=== PATIENT | female | born 1940 | race Caucasian/White ===

== ENCOUNTER 2016-07-12 13:27 | Inpatient (IN) ==
[2016-07-12] MEDS ORDERED: Ipratropium/Albuterol Neb 3 ML IH ONE (13:49)
--- NOTE | 2016-07-12 13:50 | Emergency Department Note ---
Disposition Clinical Impression: Atrial fibrillation with RVR COPD (chronic obstructive pulmonary disease) Qualifiers: COPD type: unspecified COPD Qualified Code(s): J44.9 - Chronic obstructive pulmonary disease, unspecified Disposition: Admitted As Inpatient Condition: Fair Referrals: Luz Hicks MD [Primary Care Provider] - Forms: ED Satisfaction Letter Time of Disposition: 14:38 SOB HPI - General Chief Complaint: ED Weakness Stated Complaint: weakness Time Seen by Provider: 07/12/16 13:33 Source: patient, EMS Limitations: no limitations Nursing Notes Reviewed: Yes Vital Signs Reviewed: Yes - History of Present Illness 75-year-old comes in complaining of increasing shortness of breath for the last couple of days. Patient states that she's had shortness of breath Quite some time. Had a cough. She denies chest pain. Previous echo done in 2013 shows an EF of 60%. He denies history of CHF Pt Subjective Complaint: shortness of breath Onset (ago): Just BUNDLE TIER (Has worsened) Severity: moderate Consistency/Duration: constant Improves with: nothing Worsens with: nothing Known history of: COPD Associated symptoms: Reports: denies other symptoms Treatment prior to arrival: none Cough present: Yes - Related Data Home Medications Medication Instructions Recorded Confirmed Cholecalciferol (Vitamin D3) 2,000 unit PO DAILY 02/14/15 07/12/16 [Vitamin D3] Docusate [Colace] 300 mg PO HS 02/14/15 07/12/16 Ferrous Sulfate 325 mg PO DAILY 02/14/15 07/12/16 Losartan/Hydrochlorothiazide 1 each PO BID 02/14/15 07/12/16 [Hyzaar 50-12.5 Tablet] Lutein 10 mg PO DAILY 02/14/15 07/12/16 Multivitamin/Iron/Folic Acid 1 each PO DAILY 02/14/15 07/12/16 [Centrum Complete Multivit Tab] Nebivolol [Bystolic] 10 mg PO DAILY 02/14/15 07/12/16 Rivaroxaban [Xarelto] 20 mg PO HS 02/14/15 07/12/16 Sennosides [Senna] 8.6 mg PO DAILY 02/14/15 07/12/16 Simvastatin [Zocor] 20 mg PO HS 02/14/15 07/12/16 Albuterol Sulfate [Albuterol 0 puff IH Q4HR 07/12/16 07/12/16 Inhaler] Oxybutynin [Ditropan] 5 mg PO BID 07/12/16 07/12/16 Oxygen 2 l .ROUTE AD 07/12/16 07/12/16 Previous Rx's Medication Instructions Recorded Oxycodone HCl/Acetaminophen 1 each PO Q4H PRN #15 tablet 02/14/15 [Percocet 5-325 mg Tablet] Allergies Allergy/AdvReac Type Severity Reaction Status Date / Time ciprofloxacin [From Cipro] Allergy UNKNOWN Verified 02/14/15 11:03 tramadol [From Ultram] AdvReac UNKNOWN Verified 02/14/15 11:03 trospium AdvReac Diarrhea Verified 02/14/15 11:03 All systems ED: reviewed and negative except as stated. Constitutional: Denies: fever, chills, weakness, weight change Eyes: Denies: eye pain, eye discharge, vision change ENT ED: Denies: ear pain, throat pain, dental pain, hearing loss, epistaxis, congestion, dysphagia Cardiovascular: Reports: dyspnea on exertion. Denies: chest pain, palpitations , edema, syncope Respiratory: Reports: dyspnea. Denies: cough, wheezes, hemoptysis, stridor Gastrointestinal: Denies: abdominal pain, nausea, vomiting, diarrhea, constipation, hematemesis, melena, hematochezia Genitourinary: Denies: dysuria, frequency, hematuria, discharge Musculoskeletal: Denies: back pain, neck pain, arthralgia, myalgia Integumentary: Denies: rash, abrasion, lesions Neurological: Denies: headache, weakness, numbness, paresthesias, confusion, abnormal gait, vertigo Psychiatric: Denies: anxiety, depression, suicidal thoughts, homicidal thoughts , auditory hallucinations, visual hallucinations Endocrine: Denies: fatigue Hematological/Lymphatic: Denies: easy bleeding, easy bruising Allergic/Immunologic: Denies: facial swelling, urticaria Past Medical History - Past Medical History Medical history: Reports: atrial fibrillation, COPD, hypertension, kidney stones Surgical history: Reports: cholecystectomy Psychiatric history: Reports: no psych history - Social History Smoking Status: Never smoker Smokeless Tobacco Status: No Alcohol use: Reports: none Drug use: Reports: none Physical Exam - General Limitations: no limitations General appearance: alert - Head Head exam: atraumatic, normocephalic, normal inspection - Eye Eye exam: Present: normal appearance, PERRL, EOMI - ENT ENT exam: normal exam, normal oropharynx, mucous membranes moist - Neck Neck exam: Present: normal inspection, full ROM, trachea midline - Chest Chest inspection: Present: normal inspection, symmetric chest wall rise - Respiratory Respiratory exam: Present: wheezes (Occasional) - Cardiovascular Cardiovascular exam: Present: tachycardia, irregular rhythm - Abdominal Exam Abdominal exam: Present: soft, Non-Tender. Absent: tenderness, distention, guarding, rebound, rigidity - Extremities Exam Extremities exam: Present: normal inspection, full ROM. Absent: tenderness, pedal edema - Expanded Lower Extremity Exam Neurovascular/Tendon exam: Absent: motor deficit, sensory deficit, tendon deficit Gait: observed and normal - Back Exam Back exam: Present: normal inspection, full ROM. Absent: tenderness - Neurological Exam Neurological exam: Present: alert - Psychiatric Psychiatric exam: Present: normal affect, normal mood - Skin Skin exam: Present: warm, dry, intact, normal color Course - Reevaluation(s) Reevaluation #1: 75-year-old comes in with shortness of breath was found to be in A. fib with RVR. Patient and family states she has been in A. fib in the past although her last EKG here shows she was in sinus. Ears that she likely has paroxysmal atrial fibrillation. We will admit her to the hospital she is on a Cardizem drip. Time: 15:54 - Consultations Consultation #1: Discussed with , admit. Time: 15:55 Vital Signs Temperature 98.4 F 07/12/16 13:30 Pulse Rate 118 07/12/16 13:30 Respiratory Rate 24 07/12/16 13:30 Blood Pressure 169/109 07/12/16 13:30 O2 Sat by Pulse Oximetry 93 07/12/16 13:30 Temperature 98.4 F 07/12/16 13:30 Pulse Rate 124 07/12/16 15:04 Respiratory Rate 18 07/12/16 15:04 Blood Pressure 121/79 07/12/16 15:04 O2 Sat by Pulse Oximetry 97 07/12/16 15:04 Oxygen Delivery Oxygen Delivery Nasal Cannula Shortness of Breath/Dyspnea - Lab Data Lab results reviewed: Yes I reviewed the patient's lab results. Result diagrams: 07/12/16 13:54 07/12/16 13:54 Lab Results 07/12/16 07/12/16 07/12/16 Range/Units 13:54 13:54 13:54 WBC 12.0 H (4.3-11.1) K/mcL RBC 4.15 (3.82-4.97) M/mcL Hgb 12.2 (11.5-15.4) g/dL Hct 41.4 (35.3-44.9) % MCV 99.8 (83.0-100.0) fL MCH 29.4 (28.0-33.3) pg MCHC 29.5 L (31.6-35.5) g/dL RDW 13.5 (11.5-14.5) % Plt Count 165 (140-400) K/mcL MPV 10.1 (9.4-12.4) fL Immature Gran % 0.3 (0-4) % Seg Neutrophils % 78.7 % Lymphocytes % 14.0 % Monocytes % 6.2 % Eosinophils % 0.5 % Basophils % 0.3 % Neutrophils # 9.4 H (1.6-8.9) K/mcL Lymphocytes # 1.7 (0.6-4.6) K/mcL Monocytes # 0.7 (0.0-1.3) K/mcL Eosinophils # 0.1 (0.0-0.6) K/mcL Basophils # 0.0 (0.0-0.2) K/mcL PT (9.4-12.1) Seconds INR APTT (26.0-36.0) Seconds ABG pH (7.32-7.45) pH Units ABG pCO2 (35-45) mmHg ABG pO2 (85-104) mmHg ABG HCO3 (21-27) mEQ/L ABG Total CO2 (20-26) mEq/L ABG O2 Saturation (95-98) % ABG Base Excess (-2.0 to 3.0) mEq/L Blood Gas Modality Inspired O2 % Sodium 149 H (136-145) mEq/L Potassium 3.6 (3.5-4.5) mEq/L Chloride 95 L (98-109) mEq/L Carbon Dioxide 49 H* (19-29) mEq/L BUN 33 H (7-20) mg/dL Creatinine 1.15 H (0.57-1.11) mg/dL Est GFR ( Amer) 56 L (> 60) Est GFR (Non-Af Amer) 46 L (> 60) BUN/Creatinine Ratio 29 H (6-26) Glucose 130 H (70-99) mg/dL Calculated Osmolality 317 H (280-300) Lactic Acid 1.6 (0.5-2.2) mmol/L Calcium 10.4 (8.6-10.8) mg/dL Troponin I (0-0.03) ng/mL B-Natriuretic Peptide (0-100) pg/mL 07/12/16 07/12/16 07/12/16 Range/Units 13:54 13:54 13:54 WBC (4.3-11.1) K/mcL RBC (3.82-4.97) M/mcL Hgb (11.5-15.4) g/dL Hct (35.3-44.9) % MCV (83.0-100.0) fL MCH (28.0-33.3) pg MCHC (31.6-35.5) g/dL RDW (11.5-14.5) % Plt Count (140-400) K/mcL MPV (9.4-12.4) fL Immature Gran % (0-4) % Seg Neutrophils % % Lymphocytes % % Monocytes % % Eosinophils % % Basophils % % Neutrophils # (1.6-8.9) K/mcL Lymphocytes # (0.6-4.6) K/mcL Monocytes # (0.0-1.3) K/mcL Eosinophils # (0.0-0.6) K/mcL Basophils # (0.0-0.2) K/mcL PT 12.7 H (9.4-12.1) Seconds INR 1.2 APTT 33.0 (26.0-36.0) Seconds ABG pH (7.32-7.45) pH Units ABG pCO2 (35-45) mmHg ABG pO2 (85-104) mmHg ABG HCO3 (21-27) mEQ/L ABG Total CO2 (20-26) mEq/L ABG O2 Saturation (95-98) % ABG Base Excess (-2.0 to 3.0) mEq/L Blood Gas Modality Inspired O2 % Sodium (136-145) mEq/L Potassium (3.5-4.5) mEq/L Chloride (98-109) mEq/L Carbon Dioxide (19-29) mEq/L BUN (7-20) mg/dL Creatinine (0.57-1.11) mg/dL Est GFR ( Amer) (> 60) Est GFR (Non-Af Amer) (> 60) BUN/Creatinine Ratio (6-26) Glucose (70-99) mg/dL Calculated Osmolality (280-300) Lactic Acid (0.5-2.2) mmol/L Calcium (8.6-10.8) mg/dL Troponin I 0.02 (0-0.03) ng/mL B-Natriuretic Peptide 95 (0-100) pg/mL 07/12/16 Range/Units 14:35 WBC (4.3-11.1) K/mcL RBC (3.82-4.97) M/mcL Hgb (11.5-15.4) g/dL Hct (35.3-44.9) % MCV (83.0-100.0) fL MCH (28.0-33.3) pg MCHC (31.6-35.5) g/dL RDW (11.5-14.5) % Plt Count (140-400) K/mcL MPV (9.4-12.4) fL Immature Gran % (0-4) % Seg Neutrophils % % Lymphocytes % % Monocytes % % Eosinophils % % Basophils % % Neutrophils # (1.6-8.9) K/mcL Lymphocytes # (0.6-4.6) K/mcL Monocytes # (0.0-1.3) K/mcL Eosinophils # (0.0-0.6) K/mcL Basophils # (0.0-0.2) K/mcL PT (9.4-12.1) Seconds INR APTT (26.0-36.0) Seconds ABG pH 7.46 H (7.32-7.45) pH Units ABG pCO2 79 H* (35-45) mmHg ABG pO2 90 (85-104) mmHg ABG HCO3 56.2 H (21-27) mEQ/L ABG Total CO2 58.6 H (20-26) mEq/L ABG O2 Saturation 97 (95-98) % ABG Base Excess 27.0 H (-2.0 to 3.0) mEq/L Blood Gas Modality [place] Inspired O2 28 % Sodium (136-145) mEq/L Potassium (3.5-4.5) mEq/L Chloride (98-109) mEq/L Carbon Dioxide (19-29) mEq/L BUN (7-20) mg/dL Creatinine (0.57-1.11) mg/dL Est GFR ( Amer) (> 60) Est GFR (Non-Af Amer) (> 60) BUN/Creatinine Ratio (6-26) Glucose (70-99) mg/dL Calculated Osmolality (280-300) Lactic Acid (0.5-2.2) mmol/L Calcium (8.6-10.8) mg/dL Troponin I (0-0.03) ng/mL B-Natriuretic Peptide (0-100) pg/mL - Radiology Data Radiology results reviewed: Yes I reviewed the patient's radiology results. Chest X-Ray 07/12/16 13:45 IMPRESSION: 1. No active pulmonary disease. 2. Stable cardiomegaly without overt failure. D/ / Dionte Dominguez MD / Dionte Dominguez MD Interpreting Provider: Dionte Dominguez MD - EKG Data EKG attestation: Yes I reviewed and interpreted this EKG. Rate: Reports: tachycardia Rhythm: Reports: A.Fib When compared to previous EKG there are: changes noted (Previous EKG done 2014 shows a sinus rhythm) Interpretation: Reports: other (New-onset A. fib RVR)
[2016-07-12 14:04] LABS: Basophils % 0.3 %; Eosinophils # 0.1 K/mcL (0.0-0.6); Eosinophils % 0.5 %; Hematocrit 41.4 % (35.3-44.9); Hemoglobin 12.2 g/dL (11.5-15.4); Immature Granulocytes % 0.3 % (0-4); Lymphocytes # 1.7 K/mcL (0.6-4.6); Mean Corpuscular HGB Conc 29.5 g/dL (31.6-35.5); Mean Corpuscular Hemoglobin 29.4 pg (28.0-33.3); Mean Corpuscular Volume 99.8 fL (83.0-100.0); Mean Platelet Volume 10.1 fL (9.4-12.4); Monocytes # 0.7 K/mcL (0.0-1.3); Monocytes % 6.2 %; Neutrophils # 9.4 K/mcL (1.6-8.9); Platelet Count 165 K/mcL (140-400); Red Blood Count 4.15 M/mcL (3.82-4.97); Red Cell Distribution Width 13.5 % (11.5-14.5); Segmented Neutrophils % 78.7 %
[2016-07-12 14:10] LABS: INR 1.2; Prothrombin Time 12.7 Seconds (9.4-12.1)
[2016-07-12 14:17] LABS: Calcium 10.4 mg/dL (8.6-10.8); Potassium 3.6 mEq/L (3.5-4.5)
[2016-07-12 14:58] LABS: ABG HCO3 56.2 mEQ/L (21-27); ABG Oxygen Saturation 97 % (95-98); ABG PH 7.46 pH Units (7.32-7.45); ABG PO2 90 mmHg (85-104); ABG TCO2 58.6 mEq/L (20-26)
[2016-07-12 14:59] LABS: ABG PCO2 79 mmHg (35-45); Blood Gas FiO2 28 %
[2016-07-12] MEDS ORDERED: Naloxone 0.4 MG/ML INJ IVP PRN (17:04)
[2016-07-12] MEDS ORDERED: Acetaminophen 325 MG TABLET PO PRN (17:04)
[2016-07-12] MEDS ORDERED: *HR* OxyCODONE/APAP 5/325 TABLET PO PRN (17:07)
[2016-07-12] MEDS ORDERED: 0.9 % Sodium Chloride 1,000 ML IVC ONE (17:12)
[2016-07-12] MEDS ORDERED: Albuterol 2.5 MG/3 ML NEBULIZER IH PRN (17:53)
[2016-07-12] MEDS ORDERED: Azithromycin 250 MG TABLET PO ONE (17:54)
[2016-07-12] MEDS ORDERED: 0.9 % Sodium Chloride 1,000 ML IVC SCH (18:00)
--- NOTE | 2016-07-12 18:08 | Internal Med History&Physical ---
<Chelsey Dawkins - Last Filed: 07/12/16 18:48> Date of Encounter: 07/12/16 Time of Encounter: 18:01 Assessment and Plan (1) Atrial fibrillation with RVR Current visit: Yes Status: Acute 1 patient has a history of paroxysmal atrial fibrillation. She did not experience increasing shortness of breath denied any chest pain or palpitations. She is found to be in A. fib RVR rate of 140s.Suspect this was triggered by exacerbation of COPD She was given IV Cardizem bolus started on drip. We will continue with IV Cardizem.-She is on Xarelto for anticoagulation 2 continuous cardiac monitoring 3 continue bystolic 4 consult cardiology as needed 5 obtain echo (2) COPD exacerbation Current visit: Yes Status: Acute 1 patient has history of COPD she is oxygen dependent at home. She has been expansion increasing shortness of breath as well as nonproductive cough. No fevers slight leukocytosis of 12. We will continue with oxygen titrated to maintain SaO2 greater than 92% 2 we will administer bronchodilators 3 give a Z-Romeo (3) HTN (hypertension) Current visit: Yes Status: Acute 1 presently controlled on Cardizem gtt Will hold antihypertensives for now and will resume once patient's back to baseline 2 low-sodium diet Qualifiers: Hypertension type: essential hypertension Qualified Code(s): I10 - Essential (primary) hypertension (4) DVT prophylaxis Current visit: Yes Status: Acute 1 on xarelto (5) CKD (chronic kidney disease) stage 3, GFR 30-59 ml/min Current visit: Yes Status: Acute 1 Creatinine stable appears baseline around 1.3 will continue to monitor 2montor intake and output 3 avoid nephrotoxins Internal Medicine - H&P: HPI Chief complaint: sob Admitted From: Emergency Dept Plans for Post Hospital Care: Home History of present illness: Ms. Gambino is a 75 year old female past medical history of hypertension CK D stage III COPD on oxygen at home oxygen paroxysmal atrial fibrillation pancreatitis. Patient has been expressing increasing shortness of breath past 2 days despite the use of her oxygen. She also has experienced a moist nonproductive cough. She denies any fevers chills nausea vomiting diarrhea, chest pain or palpitations. She denies any past history of congestive heart failure. Past echo 2013 revealed EF 60%. She presented to the ER with above complaints. Upon arrival to the ER EKG revealed patient was in A. fib RVR with rate of 140. Patient was given Cardizem IV bolus and was started on Cardizem drip. ABG did reveal some CO2 retention. Lab work slightly elevated white count at 12 troponin was 0.02. Chest x-ray no acute cardiopulmonary process. Patient was admitted for further workup and evaluation. Presently patient is not having chest pain she denies any shortness of breath she appears to be in mild respiratory distress. Lung sounds are diminished throughout she does have some lower extremity edema which she states is chronic. Heart sounds are S1-S2 irregular no clicks rubs gallops murmurs noted. She is atrial fibrillation with rate of 141 monitor and storage bin tender. Cardizem Joshua 5 mls increased to 10mls. I reviewed this case with Dr Herrera who agrees with plan Past Med Surg Social Fam HX - Past Medical History Medical history: atrial fibrillation, COPD, hypertension, kidney stones Psychiatric history: no psych history - Past Surgical History Surgical History: cholecystectomy - Social History Smoking Status: Never smoker Smokeless Tobacco Status: No Alcohol use: none Drug use: none Internal Medicine - H&P: Meds Cholecalciferol (Vitamin D3) [Vitamin D3] 2,000 unit PO DAILY 02/14/15 [History] Docusate [Colace] 300 mg PO HS 02/14/15 [History] Ferrous Sulfate 325 mg PO DAILY 02/14/15 [History] Losartan/Hydrochlorothiazide [Hyzaar 50-12.5 Tablet] 1 each PO BID 02/14/15 [ History] Lutein 10 mg PO DAILY 02/14/15 [History] Multivitamin/Iron/Folic Acid [Centrum Complete Multivit Tab] 1 each PO DAILY 01/19 [History] Nebivolol [Bystolic] 10 mg PO DAILY 02/14/15 [History] Oxycodone HCl/Acetaminophen [Percocet 5-325 mg Tablet] 1 each PO Q4H PRN #15 tablet 02/14/15 [Rx] Rivaroxaban [Xarelto] 20 mg PO HS 02/14/15 [History] Sennosides [Senna] 8.6 mg PO DAILY 02/14/15 [History] Simvastatin [Zocor] 20 mg PO HS 02/14/15 [History] Albuterol Sulfate [Albuterol Inhaler] 0 puff IH Q4HR 07/12/16 [History] Oxybutynin [Ditropan] 5 mg PO BID 07/12/16 [History] Oxygen 2 l .ROUTE AD 07/12/16 [History] Allergies ciprofloxacin [From Cipro] Allergy (Verified 02/14/15 11:03) UNKNOWN tramadol [From Ultram] Adverse Reaction (Verified 02/14/15 11:03) UNKNOWN trospium Adverse Reaction (Verified 02/14/15 11:03) Diarrhea All Systems PM: A 10-system review of systems was performed and is negative for pertinent findings except as documented above in the HPI. - Constitutional Constitutional: fatigue - Cardiovascular Cardiovascular ROS IM: dyspnea, dyspnea on exertion, edema - Respiratory Respiratory: cough, dyspnea on exertion, wheezing - Gastrointestinal Gastrointestinal: no abdominal pain, no diarrhea, no hematemesis, no hematochezia, no melena, no nausea, no vomiting - Genitourinary Genitourinary: no change in urinary stream, no dysuria, no flank pain, no hematuria - Musculoskeletal Musculoskeletal ROS IM: no numbness, no tingling - Integumentary Integumentary IM: erythema, non-healing lesions, skin ulcer - Neurological Neurological ROS: no confusion, no convulsions, no focal weakness, no numbness, no tingling, no tremor(s) - Hematologic/Lymphatic Hematologic/Lymphatic: no easy bruising - Constitutional Vitals: Temp Pulse Resp BP Pulse Ox 98.4 F 135 16 157/78 98 07/12/16 13:30 07/12/16 17:19 07/12/16 17:19 07/12/16 17:19 07/12/16 17:19 General appearance: Present: A&O X 3, morbidly obese, answers questions appropriately - Head Head exam: Present: atraumatic, normocephalic - Eye Eye exam: Present: PERRL, conjuntiva pink, sclera anicteric Pupils: Present: PERRL - Neck Neck exam general surgery: Present: supple, trachea midline. Absent: lymphadenopathy - Respiratory Respiratory exam: Present: decreased breath sounds, CTAB. Absent: accessory muscle use, rales, rhonchi, wheezes - Cardiovascular Cardiovascular exam: Present: irregular rhythm, +S1, +S2 - GI/Abdominal GI/Abdominal exam: Present: normal bowel sounds, soft, no peritoneal signs. Absent: distended, tenderness - Extremities Exam Extremities exam: Present: pedal edema, warm, radial pulses palpable and symetrical. Absent: calf tenderness, cyanotic - Expanded Lower Extremities Exam Lower Leg exam: Present: swelling Ankle exam: Present: erythema, swelling - Neurological Exam Neurological exam: Present: CN II-XII intact, oriented X3, no focal deficits. Absent: pronater drift, facial droop, speech deficit - Skin Skin exam: Present: dry, intact Internal Med - H&P Results - Labs CBC & Chem 7: 07/12/16 13:54 07/12/16 13:54 - ABG Interpretation Interpretation: metabolic alkalosis - EKG Data EKG comments: 07/12/16 18:33 afib rvr - Diagnostic Studies Other Images Additional comments: Chest X-Ray 07/12/16 13:45 IMPRESSION: 1. No active pulmonary disease. 2. Stable cardiomegaly without overt failure. D/ / Dionte Dominguez MD / Dionte Dominguez MD Interpreting Provider: Dionte Dominguez MD <Charli Herrera T - Last Filed: 07/13/16 07:34> Date of Encounter: 07/13/16 Internal Medicine - H&P: HPI History of present illness: Ms. Gambino is a 75 year old female All Systems PM: A 10-system review of systems was performed and is negative for pertinent findings except as documented above in the HPI. - Constitutional Vitals: Temp Pulse Resp BP Pulse Ox 98.2 F 111 16 78/48 98 07/12/16 18:01 07/12/16 18:01 07/12/16 18:01 07/12/16 18:01 07/12/16 18:01 Internal Med - H&P Results - Labs CBC & Chem 7: 07/13/16 01:03 07/13/16 01:03 - Attending Attestation I have independently interviewed and examined this patient. I have reviewed the EMR extensively and discussed plan of care the resident/nurse practitioner with exemptions as stated below. 75 Y/O F with COPD , Chronic retainer, WAI, MOrbid Obesity, Chronic pancreatitis , Afib on xarelto She presented with SOB and cough unproductive of sputum, no fever or chills Physical exam remarkable for diminshed breath sounds bilaterally, Afib in RVR, no pedal edema Labs and Imaging-leukocytosis with left shift, ABG with compensated respiratory acidosis, hypernatremia, acute on chronic metabolic alkalosis, trop/BNP/Lactate normal, CXR is unremarkable. Assessment/Plan: Afib with RVR, Acute on chronic hypercapneic respiratory failure, Azotemia , Hypernatremia. Give IVF boluses, continue cardizem with aim to taper down and resume oral home meds, BiPAP for resp acidosis, monitor chem, leukocytosis possibly from bronchitis, monitor on tele.... Rest of details as in [employer] documentation...
--- NOTE | 2016-07-12 18:11 | Electrocardiograph Report ---
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
[2016-07-12] MEDS: *HR* Rivaroxaban 10 MG TABLET PO SCH (21:01)
[2016-07-12] MEDS: Ipratropium/Albuterol Neb 3 ML IH SCH (23:04)
[2016-07-13 01:12] LABS: Basophils % 0.3 %; Eosinophils % 0.3 %; Hematocrit 35.6 % (35.3-44.9); Hemoglobin 10.7 g/dL (11.5-15.4); Immature Granulocytes % 0.3 % (0-4); Lymphocytes # 1.7 K/mcL (0.6-4.6); Lymphocytes % 14.4 %; Mean Corpuscular HGB Conc 30.1 g/dL (31.6-35.5); Mean Corpuscular Hemoglobin 29.8 pg (28.0-33.3); Mean Corpuscular Volume 99.2 fL (83.0-100.0); Mean Platelet Volume 10.6 fL (9.4-12.4); Monocytes # 0.9 K/mcL (0.0-1.3); Monocytes % 8.1 %; Neutrophils # 8.9 K/mcL (1.6-8.9); Platelet Count 153 K/mcL (140-400); Red Blood Count 3.59 M/mcL (3.82-4.97); Red Cell Distribution Width 13.9 % (11.5-14.5); Segmented Neutrophils % 76.6 %
[2016-07-13 01:27] LABS: Calcium 9.5 mg/dL (8.6-10.8); Potassium 3.6 mEq/L (3.5-4.5)
[2016-07-13] MEDS: Ipratropium/Albuterol Neb 3 ML IH SCH ×4 (04:39→22:33)
[2016-07-13] MEDS: Multivit/Ca/Min/Fe/FA 1 TAB TABLET PO SCH (09:29)
[2016-07-13] MEDS: Azithromycin 250 MG TABLET PO SCH (09:30)
[2016-07-13] MEDS: Cholecalciferol (D-3) 1,000 UNIT TABLET PO SCH (09:30)
[2016-07-13] MEDS: LUTEIN 10 MG PO SCH (09:31)
--- NOTE | 2016-07-13 12:47 | Internal Med Progress Note ---
Date of Encounter: 07/13/16 Time of Encounter: 12:40 - Assessment and plan (1) Atrial fibrillation with RVR Current Visit: Yes Status: Acute Assessment and plan: Atrial fibrillation with rapid ventricular rate: [id number] score is 4 Anticoagulation : Xarelto on cardizem drip and rate is getting controlled. elevated troponin likely demand ischimia. plan will cycle tropnin will titrate cardizem drip. continue xarelto by tomorrow will switch her to oral meds. (2) Diabetes mellitus Current Visit: Yes Status: Acute Assessment and plan: ACHS SCSI Qualifiers: Diabetes mellitus type: type 2 Diabetes mellitus complication status: with unspecified complications Diabetes mellitus senior care insulin use: without senior care use Qualified Code(s): E11.8 - Type 2 diabetes mellitus with unspecified complications (3) HTN (hypertension) Current Visit: Yes Status: Acute Assessment and plan: will resume home medications. Qualifiers: Hypertension type: essential hypertension Qualified Code(s): I10 - Essential (primary) hypertension (4) CKD (chronic kidney disease) stage 3, GFR 30-59 ml/min Current Visit: Yes Status: Acute - Subjective Interval history: Patient seen and examined. Chart reviewed. Plan complaints of dysuria, increased frequency, and hesitancy. Patient denies chest pain, palpitation, dizziness, abdominal pain, diarrhea and vomiting - Constitutional Vitals: Temp Pulse Resp BP Pulse Ox 98.1 F 67 16 146/64 99 07/13/16 07:22 07/13/16 07:22 07/13/16 11:39 07/13/16 07:22 07/13/16 11:39 General appearance: Present: A&O X 3, morbidly obese, answers questions appropriately - Head Head exam: Present: atraumatic, normocephalic - Eye Eye exam: Present: PERRL, conjuntiva pink, sclera anicteric Pupils: Present: PERRL - Neck Neck exam general surgery: Present: supple, trachea midline. Absent: lymphadenopathy - Respiratory Respiratory exam: Present: CTAB. Absent: accessory muscle use, rales, rhonchi, wheezes - Cardiovascular Cardiovascular exam: Present: RRR, +S1, +S2. Absent: diastolic murmur, gallop, rubs, systolic murmur - GI/Abdominal GI/Abdominal exam: Present: normal bowel sounds, soft, no peritoneal signs. Absent: distended, tenderness - Extremities Exam Extremities exam: Present: warm, radial pulses palpable and symetrical. Absent : calf tenderness, cyanotic, pedal edema - Neurological Exam Neurological exam: Present: CN II-XII intact, oriented X3, no focal deficits. Absent: pronater drift, facial droop, speech deficit - Skin Skin exam: Present: dry, intact Internal Medicine: Result - Labs CBC & Chem 7: 07/13/16 01:03 07/13/16 01:03 Labs: Short CBC 07/13/16 Range/Units 01:03 WBC 11.7 H (4.3-11.1) K/mcL Hgb 10.7 L D (11.5-15.4) g/dL Hct 35.6 (35.3-44.9) % Plt Count 153 (140-400) K/mcL Neutrophils # 8.9 (1.6-8.9) K/mcL BMP 07/13/16 01:03 Sodium 150 H Potassium 3.6 Chloride 96 L Carbon Dioxide 47 H* BUN 32 H Creatinine 1.24 H Glucose 122 H Calcium 9.5 Cardiac Enzymes 07/12/16 07/13/16 Range/Units 18:44 01:03 Troponin I 0.04 H* 0.15 H* (0-0.03) ng/mL - ABG Interpretation ABG results: ABG ABG pH 7.46 pH Units (7.32-7.45) H 07/12/16 14:35 ABG pCO2 79 mmHg (35-45) H* 07/12/16 14:35 ABG pO2 90 mmHg (85-104) 07/12/16 14:35 ABG O2 Saturation 97 % (95-98) 07/12/16 14:35 PT/INR, D-dimer PT 12.7 Seconds (9.4-12.1) H 07/12/16 13:54 Consult Discharge Plan - Plan Referrals: Luz Hicks MD [Primary Care Provider] -
[2016-07-13] MEDS: *HR* Rivaroxaban 10 MG TABLET PO SCH (21:49)
[2016-07-14 02:27] LABS: Basophils % 0.3 %; Eosinophils # 0.1 K/mcL (0.0-0.6); Eosinophils % 0.5 %; Hematocrit 36.1 % (35.3-44.9); Hemoglobin 10.7 g/dL (11.5-15.4); Immature Granulocytes % 0.4 % (0-4); Lymphocytes # 1.6 K/mcL (0.6-4.6); Lymphocytes % 17.6 %; Mean Corpuscular HGB Conc 29.6 g/dL (31.6-35.5); Mean Corpuscular Hemoglobin 29.6 pg (28.0-33.3); Mean Corpuscular Volume 99.7 fL (83.0-100.0); Mean Platelet Volume 11.3 fL (9.4-12.4); Monocytes # 0.8 K/mcL (0.0-1.3); Monocytes % 9.1 %; Neutrophils # 6.6 K/mcL (1.6-8.9); Platelet Count 145 K/mcL (140-400); Red Blood Count 3.62 M/mcL (3.82-4.97); Red Cell Distribution Width 14.2 % (11.5-14.5); Segmented Neutrophils % 72.1 %
[2016-07-14 02:42] LABS: Alanine Aminotransferase 20 Units/L (0-55); Albumin 2.8 g/dL (3.5-5.0); Albumin/Globulin Ratio 0.8 (1.1-2.2); Alkaline Phosphatase 64 Units/L (38-126); Aspartate Amino Transferase 22 Units/L (5-34); BUN/Creatinine Ratio 26 (6-26); Bilirubin,Total 0.8 mg/dL (0.2-1.2); Blood Urea Nitrogen 28 mg/dL (7-20); Calcium 9.2 mg/dL (8.6-10.8); Chloride 97 mEq/L (98-109); Globulin 3.6 g/dL (2.4-3.5); Glucose 101 mg/dL (70-99); Osmolality,Calculated 314 (280-300); Potassium 3.3 mEq/L (3.5-4.5); Sodium 149 mEq/L (136-145); Total Protein 6.4 g/dL (6.0-8.3); eGFR For African Americans > 60 (> 60); eGFR For Non-African Americans 51 (> 60)
[2016-07-14 02:55] LABS: Carbon Dioxide 49 mEq/L (19-29)
[2016-07-14] MEDS: Ipratropium/Albuterol Neb 3 ML IH SCH ×4 (04:46→22:36)
[2016-07-14] MEDS: Cholecalciferol (D-3) 1,000 UNIT TABLET PO SCH (08:44)
[2016-07-14] MEDS: Azithromycin 250 MG TABLET PO SCH (08:44)
[2016-07-14] MEDS: Multivit/Ca/Min/Fe/FA 1 TAB TABLET PO SCH (08:44)
[2016-07-14] MEDS: LUTEIN 10 MG PO SCH (08:45)
--- NOTE | 2016-07-14 10:07 | Internal Med Progress Note ---
Date of Encounter: 07/15/16 Time of Encounter: 10:05 - Assessment and plan (1) Atrial fibrillation with RVR Current Visit: Yes Status: Acute Assessment and plan: Atrial fibrillation with rapid ventricular rate: [id number] score is 4 Anticoagulation : Xarelto on cardizem drip and rate is getting controlled. elevated troponin likely demand ischimia. plan will cycle tropnin will titrate cardizem drip. continue xarelto by tomorrow will switch her to oral meds. 07/14/2016. Troponin drawn, downward trend. Intravenous Cardizem terminated. Patient is on oral Cardizem. Heart rate is between 60 and 70. Anticoagulation:Xarelto Noted that that is a drop of hemoglobin by 2. possible hemodilution. We will get stool occult blood. 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 Qualifiers: Hypertension type: essential hypertension Qualified Code(s): I10 - Essential (primary) hypertension (4) CKD (chronic kidney disease) stage 3, GFR 30-59 ml/min Current Visit: Yes Status: Acute Assessment and plan: Creatinine came back to baseline. - Subjective Interval history: Patient seen and examined. Chart reviewed. Plan complaints of dysuria, increased frequency, and hesitancy. Patient denies chest pain, palpitation, dizziness, abdominal pain, diarrhea and vomiting 07/14/2016. Patient seen and examined. Chart reviewed. Patient still has occasional dysuria. Patient denies chest pain, palpation, dizziness, abdominal pain, diarrhea and vomiting - Constitutional Vitals: Temp Pulse Resp BP Pulse Ox 98.6 F 74 18 139/58 96 07/14/16 07:46 07/14/16 07:46 07/14/16 07:46 07/14/16 07:46 07/14/16 07:46 General appearance: Present: A&O X 3, morbidly obese, answers questions appropriately - Head Head exam: Present: atraumatic, normocephalic - Eye Eye exam: Present: PERRL, conjuntiva pink, sclera anicteric Pupils: Present: PERRL - Neck Neck exam general surgery: Present: supple, trachea midline. Absent: lymphadenopathy - Respiratory Respiratory exam: Present: CTAB. Absent: accessory muscle use, rales, rhonchi, wheezes - Cardiovascular Cardiovascular exam: Present: RRR, +S1, +S2. Absent: diastolic murmur, gallop, rubs, systolic murmur - GI/Abdominal GI/Abdominal exam: Present: normal bowel sounds, soft, no peritoneal signs. Absent: distended, tenderness - Extremities Exam Extremities exam: Present: warm, radial pulses palpable and symetrical. Absent : calf tenderness, cyanotic, pedal edema - Neurological Exam Neurological exam: Present: CN II-XII intact, oriented X3, no focal deficits. Absent: pronater drift, facial droop, speech deficit - Skin Skin exam: Present: dry, intact Internal Medicine: Result - Labs CBC & Chem 7: 07/15/16 04:26 07/15/16 04:26 Labs: Short CBC 07/14/16 Range/Units 00:45 WBC 9.1 (4.3-11.1) K/mcL Hgb 10.7 L (11.5-15.4) g/dL Hct 36.1 (35.3-44.9) % Plt Count 145 (140-400) K/mcL Neutrophils # 6.6 (1.6-8.9) K/mcL BMP 07/14/16 00:45 Sodium 149 H Potassium 3.3 L Chloride 97 L Carbon Dioxide 49 H* BUN 28 H Creatinine 1.06 Glucose 101 H Calcium 9.2 Cardiac Enzymes 07/13/16 07/13/16 07/14/16 Range/Units 11:52 18:35 00:45 Troponin I 0.10 H* 0.09 H* 0.07 H* (0-0.03) ng/mL Liver Function 07/14/16 Range/Units 00:45 Total Bilirubin 0.8 (0.2-1.2) mg/dL AST 22 (5-34) Units/L ALT 20 (0-55) Units/L Alkaline Phosphatase 64 (38-126) Units/L Albumin 2.8 L (3.5-5.0) g/dL - ABG Interpretation ABG results: ABG ABG pH 7.46 pH Units (7.32-7.45) H 07/12/16 14:35 ABG pCO2 79 mmHg (35-45) H* 07/12/16 14:35 ABG pO2 90 mmHg (85-104) 07/12/16 14:35 ABG O2 Saturation 97 % (95-98) 07/12/16 14:35 PT/INR, D-dimer PT 12.7 Seconds (9.4-12.1) H 07/12/16 13:54 Consult Discharge Plan - Plan Referrals: Luz Hicks MD [Primary Care Provider] - 07/26/16 10:45 am
--- NOTE | 2016-07-14 10:31 | ECHO - Doppler Report ---
Echocardiogram Name: Delores Gambino Date of Study: 07/13/2016 Date: 1940 Ht: 62.0 in Medical Record#: [id number] Age: 75 Wt: 286.0 lb Gender: Female BSA: 2.23 Order #: [id number] Location: [facility] Room #: 2NE29 Reading Physician: Papito Duckworth DO, FACC, CASS Director Of Rooms: Antonella Blackburn BETTIE Ordering Physician: Olegario Macias MD Primary Physician: Luz Hicks MD Indications: Shortness of breath Impressions: Technically sub-optimal due to clinical status and poor windows. LVEF 60-65%. Not all LV segments were well visualized, but overall function appears normal. Mild concentric left ventricular hypertrophy. Mild left ventricular diastolic dysfunction. Right ventricle was not well evaluated. Grossy, it is normal in size and function. Moderate pulmonary hypertension. Estimated RVSP is 52 mmHg. No significant valvular dysfunction. Findings: Study Quality * Technically sub-optimal due to clinical status and poor windows. ECG Findings * Normal sinus rhythm. Left Ventricle * LVEF 60-65%. * Not all LV segments were well visualized, but overall function appears normal. Normal LV size. * Mild concentric left ventricular hypertrophy. * Mild left ventricular diastolic dysfunction. Right Ventricle * Right ventricle was not well evaluated. Grossy, it is normal in size and function. Left Atrium * Mildly dilated left atrium. Right Atrium * Mildly dilated right atrium. Interatrial Septum * Interatrial septum not well evaluated. Aortic Valve * Aortic valve not well visualized. * No aortic regurgitation. * No aortic stenosis. Mitral Valve * Normal mitral valve structure and function. * No mitral regurgitation. * No mitral stenosis. Tricuspid Valve * Normal tricuspid valve structure and function. * Trace tricuspid regurgitation. * Moderate pulmonary hypertension. * Estimated RVSP is 52 mmHg. * Estimated RA pressure is 5 mmHg. Pulmonic Valve * Pulmonic valve not well visualized. * No pulmonic regurgitation. Aorta * Normally sized aortic root. Pericardium * The pericardium appears normal. IVC * Normal IVC dimensions and inspiratory collapse. Pulmonary Artery * Normal visualized portions of the main pulmonary artery. History Hypertension Diabetes Hypercholesteremia Family History of CAD 12-03-13 a Previous Echo was performed. Measurements: BP: 147/ 78 2D Normal Values RVIDd: 3.10 cm <2.7 cm IVSd: 1.30 cm 0.6 - 1.0 cm LVIDd: 4.60 cm 3.7 - 5.6 cm LVPWd: 1.30 cm 0.6 - 1.1 cm LVIDs: 3.00 cm 1.5 - 3.6 cm AO: 2.70 cm < 4.0 cm LA: 3.30 cm 2.0 - 4.0cm %FS: 34.80 cm >25 % LVOT Diam: 2.00 cm LA volume: 57 Mitral Valve Peak E:.76 m/sec Peak A:.83 m/sec E/A Ratio:0.9 Peak E' Lat Parish:8.68 cm/s Peak E' Med Aprish:6.73 cm/s E/E' Lat Ratio:8.8 E/E' Med Ratio:11.3 Tricuspid Valve TV Regurg Peak Grad: 47.00mmHg TV Regurg Peak Parish: 3.42m/sec Updated by Papito Duckworth DO, FACCharlee, CHRIS ODELL on 07/14/2016 10:27:31 AM electronically signed on 07/14/2016 10:28:05 AM with status of [employer] [place]aden: 1=Normal, 2=Hypokinesis, 3=Akinesis, 4=Dyskinesis, 5=Aneurysmal, 6=Hyperkinetic, X=Not Visualized (Blank)=Missing
[2016-07-14 10:59] LABS: Bilirubin,Urine Negative (Negative); Blood,Urine Large (Negative); Clarity,Urine Cloudy (Clear); Color,Urine Dark Yellow (Yellow); Glucose,Urine (UA) >=1000 mg/dL (Normal); Ketones,Urine Negative (Negative); Leukocyte Esterase,Urine Moderate (Negative); Nitrite,Urine Negative (Negative); PH,Urine 6.5 pH Units (5.0-8.0); Protein,Urine 30 mg/dL (Neg-Trace); Specific Gravity,Urine 1.022 (1.010-1.025); Urobilinogen,Urine Normal (Normal)
[2016-07-14 11:01] LABS: Bacteria,Urine Few per hpf (None-Few); Hyaline Casts,Urine None Seen per lpf (None-Few); RBC,Urine TNTC per hpf (0-3); Squamous Epithelial Cell,Urine Many per lpf (None-Few); WBC,Urine 50-100 per hpf (0-3)
[2016-07-14] MEDS: *HR* Rivaroxaban 10 MG TABLET PO SCH (20:28)
[2016-07-15] MEDS: Ipratropium/Albuterol Neb 3 ML IH SCH ×4 (04:29→22:54)
[2016-07-15 04:51] LABS: Basophils % 0.5 %; Eosinophils # 0.1 K/mcL (0.0-0.6); Eosinophils % 0.7 %; Hematocrit 36.3 % (35.3-44.9); Hemoglobin 10.7 g/dL (11.5-15.4); Immature Granulocytes % 0.3 % (0-4); Lymphocytes # 1.7 K/mcL (0.6-4.6); Lymphocytes % 18.9 %; Mean Corpuscular HGB Conc 29.5 g/dL (31.6-35.5); Mean Corpuscular Hemoglobin 29.3 pg (28.0-33.3); Mean Corpuscular Volume 99.5 fL (83.0-100.0); Monocytes # 0.8 K/mcL (0.0-1.3); Monocytes % 9.5 %; Neutrophils # 6.2 K/mcL (1.6-8.9); Platelet Count 136 K/mcL (140-400); Red Blood Count 3.65 M/mcL (3.82-4.97); Red Cell Distribution Width 14.2 % (11.5-14.5); Segmented Neutrophils % 70.1 %
[2016-07-15 05:15] LABS: Albumin 2.7 g/dL (3.5-5.0); Albumin/Globulin Ratio 0.7 (1.1-2.2); Bilirubin,Total 0.8 mg/dL (0.2-1.2); Calcium 8.8 mg/dL (8.6-10.8); Globulin 4.1 g/dL (2.4-3.5); Potassium 3.7 mEq/L (3.5-4.5); Total Protein 6.8 g/dL (6.0-8.3)
--- NOTE | 2016-07-15 08:55 | Electrocardiograph Report ---
[address] [place] [address] Test Date: 2016-07-12 Pat Name: Delores Gambino Department: 111 Room: 2NE29 Gender: F Inpatient Nursing Aide: SYLVESTER : 1940 Requested By: Chelsey Dawkins Order Number: [id number] Reading MD: Milton Cordova MD Measurements Intervals [place] Rate: 63 P: 43 VA: 136 QRS: -3 QRSD: 90 T: 6 QT: 379 QTc: 386 Interpretive Statements SINUS RHYTHM WITH OCCASIONAL SUPRAVENTRICULAR PREMATURE COMPLEXES POSSIBLE ANTERIOR MYOCARDIAL INFARCTION, PROBABLY OLD Poor R wave progression Electronically Signed On 07-15-2016 8:53:51 EDT by Milton Cordova MD
[2016-07-15] MEDS: Cholecalciferol (D-3) 1,000 UNIT TABLET PO SCH (10:01)
[2016-07-15] MEDS: Multivit/Ca/Min/Fe/FA 1 TAB TABLET PO SCH (10:01)
[2016-07-15] MEDS: Azithromycin 250 MG TABLET PO SCH (10:03)
[2016-07-15] MEDS: LUTEIN 10 MG PO SCH (10:03)
[2016-07-15] MEDS ORDERED: *HR* OxyCODONE/APAP 5/325 TABLET PO PRN (14:56)
--- NOTE | 2016-07-15 16:55 | Internal Med Progress Note ---
Date of Encounter: 07/15/16 Time of Encounter: 16:51 - Assessment and plan (1) UTI (urinary tract infection) Current Visit: Yes Status: Acute Assessment and plan: Noted that patient has a urinary tract infection. We will start patient on ceftriaxone. We will wait for the cultures Today's of day 1 of ceftriaxone. If her symptoms does not get better then she needs probably urologic evaluation. Patient claims that she has a long-standing incontinence. Qualifiers: Urinary tract infection type: site unspecified Hematuria presence: with hematuria Qualified Code(s): N39.0 - Urinary tract infection, site not specified; R31.9 - Hematuria, unspecified (2) Atrial fibrillation with RVR Current Visit: Yes Status: Acute Assessment and plan: Atrial fibrillation with rapid ventricular rate: [id number] score is 4 Anticoagulation : Xarelto on cardizem drip and rate is getting controlled. elevated troponin likely demand ischimia. plan will cycle tropnin will titrate cardizem drip. continue xarelto by tomorrow will switch her to oral meds. 07/14/2016. Troponin drawn, downward trend. Intravenous Cardizem terminated. Patient is on oral Cardizem. Heart rate is between 60 and 70. Anticoagulation:Xarelto Noted that that is a drop of hemoglobin by 2. possible hemodilution. We will get stool occult blood. 07/15/2016 Patient's heart rate is between 65 and 70. She is still in atrial fibrillation. Anticoagulation:Xarelto. Stool occult still pending. Her hemoglobin and hematocrit is stable over the last 3 days. This is more likely dilutional drop. Patient received azithromycin upon arrival. This is likely to treat underlying respiratory infection. 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 Qualifiers: Hypertension type: essential hypertension Qualified Code(s): I10 - Essential (primary) hypertension (5) CKD (chronic kidney disease) stage 3, GFR 30-59 ml/min Current Visit: Yes Status: Acute Assessment and plan: Creatinine came back to baseline. - Subjective Interval history: Patient seen and examined. Chart reviewed. Plan complaints of dysuria, increased frequency, and hesitancy. Patient denies chest pain, palpitation, dizziness, abdominal pain, diarrhea and vomiting 07/14/2016. Patient seen and examined. Chart reviewed. Patient still has occasional dysuria. Patient denies chest pain, palpation, dizziness, abdominal pain, diarrhea and vomiting 07/15/2016 Patient seen and examined. Chart reviewed. Patient still has occasional dysuria. Patient is telling me today that she feels much better than the day of admission. - Constitutional Vitals: Temp Pulse Resp BP Pulse Ox 98.3 F 65 16 155/91 97 07/15/16 16:03 07/15/16 16:03 07/15/16 16:03 07/15/16 16:03 07/15/16 16:03 General appearance: Present: A&O X 3, morbidly obese, answers questions appropriately - Head Head exam: Present: atraumatic, normocephalic - Eye Eye exam: Present: PERRL, conjuntiva pink, sclera anicteric Pupils: Present: PERRL - Neck Neck exam general surgery: Present: supple, trachea midline. Absent: lymphadenopathy - Respiratory Respiratory exam: Present: CTAB. Absent: accessory muscle use, rales, rhonchi, wheezes - Cardiovascular Cardiovascular exam: Present: RRR, +S1, +S2. Absent: diastolic murmur, gallop, rubs, systolic murmur - GI/Abdominal GI/Abdominal exam: Present: normal bowel sounds, soft, no peritoneal signs. Absent: distended, tenderness - Extremities Exam Extremities exam: Present: warm, radial pulses palpable and symetrical. Absent : calf tenderness, cyanotic, pedal edema - Neurological Exam Neurological exam: Present: CN II-XII intact, oriented X3, no focal deficits. Absent: pronater drift, facial droop, speech deficit - Skin Skin exam: Present: dry, intact Internal Medicine: Result - Labs CBC & Chem 7: 07/15/16 04:26 07/15/16 04:26 Labs: Short CBC 07/15/16 Range/Units 04:26 WBC 8.8 (4.3-11.1) K/mcL Hgb 10.7 L (11.5-15.4) g/dL Hct 36.3 (35.3-44.9) % Plt Count 136 L (140-400) K/mcL Neutrophils # 6.2 (1.6-8.9) K/mcL BMP 07/15/16 04:26 Sodium 148 H Potassium 3.7 Chloride 98 Carbon Dioxide 44 H* BUN 25 H Creatinine 1.09 Glucose 136 H Calcium 8.8 Liver Function 07/15/16 Range/Units 04:26 Total Bilirubin 0.8 (0.2-1.2) mg/dL AST 25 (5-34) Units/L ALT 19 (0-55) Units/L Alkaline Phosphatase 62 (38-126) Units/L Albumin 2.7 L (3.5-5.0) g/dL - ABG Interpretation ABG results: ABG ABG pH 7.46 pH Units (7.32-7.45) H 07/12/16 14:35 ABG pCO2 79 mmHg (35-45) H* 07/12/16 14:35 ABG pO2 90 mmHg (85-104) 07/12/16 14:35 ABG O2 Saturation 97 % (95-98) 07/12/16 14:35 PT/INR, D-dimer PT 12.7 Seconds (9.4-12.1) H 07/12/16 13:54 Consult Discharge Plan - Plan Referrals: Luz Hicks MD [Primary Care Provider] - 07/26/16 10:45 am
[2016-07-15] MEDS: *HR* Rivaroxaban 10 MG TABLET PO SCH (19:59)
[2016-07-16] MEDS: Ipratropium/Albuterol Neb 3 ML IH SCH ×2 (04:46→10:39)
[2016-07-16 06:11] LABS: Alanine Aminotransferase 16 Units/L (0-55); Albumin 2.5 g/dL (3.5-5.0); Albumin/Globulin Ratio 0.6 (1.1-2.2); Alkaline Phosphatase 60 Units/L (38-126); Aspartate Amino Transferase 16 Units/L (5-34); BUN/Creatinine Ratio 22 (6-26); Bilirubin,Total 0.6 mg/dL (0.2-1.2); Blood Urea Nitrogen 23 mg/dL (7-20); Calcium 8.6 mg/dL (8.6-10.8); Chloride 99 mEq/L (98-109); Glucose 134 mg/dL (70-99); Osmolality,Calculated 306 (280-300); Potassium 4.2 mEq/L (3.5-4.5); Sodium 145 mEq/L (136-145); Total Protein 6.5 g/dL (6.0-8.3); eGFR For African Americans > 60 (> 60); eGFR For Non-African Americans 51 (> 60)
[2016-07-16 06:14] LABS: Carbon Dioxide 42 mEq/L (19-29)
[2016-07-16 06:15] LABS: Basophils % 0.4 %; Eosinophils # 0.1 K/mcL (0.0-0.6); Eosinophils % 1.1 %; Hematocrit 38.3 % (35.3-44.9); Hemoglobin 11.3 g/dL (11.5-15.4); Immature Granulocytes % 0.4 % (0-4); Lymphocytes # 2.7 K/mcL (0.6-4.6); Lymphocytes % 27.9 %; Mean Corpuscular HGB Conc 29.5 g/dL (31.6-35.5); Mean Corpuscular Hemoglobin 29.2 pg (28.0-33.3); Mean Platelet Volume 11.7 fL (9.4-12.4); Monocytes % 9.9 %; Neutrophils # 5.8 K/mcL (1.6-8.9); Platelet Count 132 K/mcL (140-400); Red Blood Count 3.87 M/mcL (3.82-4.97); Red Cell Distribution Width 14.4 % (11.5-14.5); Segmented Neutrophils % 60.3 %
[2016-07-16] MEDS: Cholecalciferol (D-3) 1,000 UNIT TABLET PO SCH (08:39)
[2016-07-16] MEDS: Azithromycin 250 MG TABLET PO SCH (08:39)
[2016-07-16] MEDS: Multivit/Ca/Min/Fe/FA 1 TAB TABLET PO SCH (08:39)
[2016-07-16] MEDS: LUTEIN 10 MG PO SCH (08:40)
--- NOTE | 2016-07-16 10:06 | Discharge Summary ---
Date of Encounter: 07/16/16 Time of Encounter: 10:04 - Discharge Diagnosis (1) Atrial fibrillation with RVR Priority: Primary Status: Resolved Comments: RVR resolved rate controlled Bystolic anticoagulated on Xarelto (2) UTI (urinary tract infection) Priority: Primary Status: Acute Comments: patient had ceftriaxone x1 dose macrobid x 1 week Qualifiers: Urinary tract infection type: site unspecified Hematuria presence: with hematuria Qualified Code(s): N39.0 - Urinary tract infection, site not specified; R31.9 - Hematuria, unspecified (3) CKD (chronic kidney disease) stage 3, GFR 30-59 ml/min Priority: Secondary Status: Chronic (4) Diabetes mellitus Priority: Secondary Status: Chronic Qualifiers: Diabetes mellitus type: type 2 Diabetes mellitus complication status: with unspecified complications Diabetes mellitus retirement insulin use: without retirement use Qualified Code(s): E11.8 - Type 2 diabetes mellitus with unspecified complications (5) HTN (hypertension) Priority: Secondary Status: Chronic Qualifiers: Hypertension type: essential hypertension Qualified Code(s): I10 - Essential (primary) hypertension - Discharge Medications Prescriptions: Nitrofurantoin (BID) [Macrobid] 100 mg PO BID #14 capsule Home Medications: Cholecalciferol (Vitamin D3) [Vitamin D3] 2,000 unit PO DAILY 02/14/15 [History] Docusate [Colace] 300 mg PO HS 02/14/15 [History] Ferrous Sulfate 325 mg PO DAILY 02/14/15 [History] Losartan/Hydrochlorothiazide [Hyzaar 50-12.5 Tablet] 1 each PO BID 02/14/15 [ History] Lutein 10 mg PO DAILY 02/14/15 [History] Multivitamin/Iron/Folic Acid [Centrum Complete Multivit Tab] 1 each PO DAILY 01/19 [History] Nebivolol [Bystolic] 10 mg PO DAILY 02/14/15 [History] Oxycodone HCl/Acetaminophen [Percocet 5-325 mg Tablet] 1 each PO Q4H PRN #15 tablet 02/14/15 [Rx] Rivaroxaban [Xarelto] 20 mg PO HS 02/14/15 [History] Sennosides [Senna] 8.6 mg PO DAILY 02/14/15 [History] Simvastatin [Zocor] 20 mg PO HS 02/14/15 [History] Albuterol Sulfate [Albuterol Inhaler] 0 puff IH Q4HR 07/12/16 [History] Oxybutynin [Ditropan] 5 mg PO BID 07/12/16 [History] Oxygen 2 l .ROUTE AD 07/12/16 [History] Nitrofurantoin (BID) [Macrobid] 100 mg PO BID #14 capsule 07/16/16 [Rx] Allergies/Adverse Reactions: Allergies ciprofloxacin [From Cipro] Allergy (Verified 02/14/15 11:03) UNKNOWN tramadol [From Ultram] Adverse Reaction (Verified 02/14/15 11:03) UNKNOWN trospium Adverse Reaction (Verified 02/14/15 11:03) Diarrhea Date of admission: 07/12/16 18:33 Primary care physician: Luz Hicks Discharging clinician: Roxane Haynes Anticipated date of discharge: 07/16/16 - Patient Status Disposition: Home, Self-Care Condition: Fair - Discharge Instructions Follow Up With: Luz Hicks MD [Primary Care Provider] - 07/26/16 10:45 am - Diet and Activity Diet: diabetic diet, low fat, low cholesterol, low salt diet Hospital course: Ms. Gambino is a 75 year old female - Time Spent with Patient Total time spent providing and/or coordinating discharge services: - Constitutional Vitals: Temp Pulse Resp BP Pulse Ox 98.5 F 65 16 139/58 94 07/16/16 07:06 07/16/16 07:06 07/16/16 07:06 07/16/16 07:06 07/16/16 09:00 General appearance: Present: A&O X 3, morbidly obese, answers questions appropriately
[2016-07-16] MEDS ORDERED: Ipratropium/Albuterol Neb 3 ML IH PRN (12:59)
--- NOTE | 2016-07-16 13:12 | Internal Med Progress Note ---
<Roxane Haynes - Last Filed: 07/16/16 15:38> Date of Encounter: 07/16/16 Time of Encounter: 08:30 - Assessment and plan (2) UTI (urinary tract infection) Current Visit: Yes Status: Acute Assessment and plan: Noted that patient has a urinary tract infection. We will start patient on ceftriaxone. Today's of day 1 of ceftriaxone. Patient claims that she has a long-standing incontinence. 07/16/2016 Patient complaining of back and leg pain, also with bowel (and bladder) incontinence - will order x-ray and MRI of lumbar spine and pelvis ceftriaxone day 2 Qualifiers: Urinary tract infection type: site unspecified Hematuria presence: with hematuria Qualified Code(s): N39.0 - Urinary tract infection, site not specified (3) Atrial fibrillation with RVR Current Visit: Yes Status: Resolved Assessment and plan: Atrial fibrillation with rapid ventricular rate: [id number] score is 4 Anticoagulation : Xarelto on cardizem drip and rate is getting controlled. elevated troponin likely demand ischimia. plan will cycle tropnin will titrate cardizem drip. continue xarelto by tomorrow will switch her to oral meds. 07/14/2016. Troponin drawn, downward trend. Intravenous Cardizem terminated. Patient is on oral Cardizem. Heart rate is between 60 and 70. Anticoagulation:Xarelto Noted that that is a drop of hemoglobin by 2. possible hemodilution. We will get stool occult blood. 07/15/2016 Patient's heart rate is between 65 and 70. She is still in atrial fibrillation. Anticoagulation:Xarelto. Stool occult still pending. Her hemoglobin and hematocrit is stable over the last 3 days. This is more likely dilutional drop. Patient received azithromycin upon arrival. This is likely to treat underlying respiratory infection. 07/16/2016 Sinus Rhythm HR 65-69 on bystolic and xarelto stool occult pending (4) CKD (chronic kidney disease) stage 3, GFR 30-59 ml/min Current Visit: Yes Status: Chronic Assessment and plan: at baseline (5) Diabetes mellitus Current Visit: Yes Status: Chronic Assessment and plan: ACHS SCSI Qualifiers: Diabetes mellitus type: type 2 Diabetes mellitus complication status: with unspecified complications Diabetes mellitus penitentiary insulin use: without manager long term care use Qualified Code(s): E11.8 - Type 2 diabetes mellitus with unspecified complications (6) HTN (hypertension) Current Visit: Yes Status: Chronic Assessment and plan: on home medications Qualifiers: Hypertension type: essential hypertension Qualified Code(s): I10 - Essential (primary) hypertension - Subjective Interval history: Patient seen and examined. Denies lower urinary tract symptoms. Admits to chronic urinary incontinence. On further questioning, she describes back and leg pain and also bowel incontinence. Her goal is to be able to walk to her mailbox. - Constitutional Vitals: Temp Pulse Resp BP Pulse Ox 98.4 F 67 22 145/73 94 07/16/16 11:12 07/16/16 11:12 07/16/16 11:12 07/16/16 11:12 07/16/16 11:12 General appearance: Present: A&O X 3, morbidly obese, answers questions appropriately - Head Head exam: Present: atraumatic, normocephalic Additional comments: psoriasis of the scalp - Eye Eye exam: Present: EOMI, PERRL, conjuntiva pink, sclera anicteric - Neck Neck exam general surgery: Present: supple - Respiratory Respiratory exam: Present: CTAB - Cardiovascular Cardiovascular exam: Present: RRR, +S1, +S2 - GI/Abdominal GI/Abdominal exam: Present: normal bowel sounds, soft. Absent: tenderness - Extremities Exam Additional comments: bilateral LE bandaged, trace pitting edema - Skin Additional comments: psoriasis throughout Internal Medicine: Result - Labs CBC & Chem 7: 07/16/16 05:40 07/16/16 05:40 Labs: Short CBC 07/16/16 Range/Units 05:40 WBC 9.6 (4.3-11.1) K/mcL Hgb 11.3 L (11.5-15.4) g/dL Hct 38.3 (35.3-44.9) % Plt Count 132 L (140-400) K/mcL Neutrophils # 5.8 (1.6-8.9) K/mcL BMP 07/16/16 05:40 Sodium 145 Potassium 4.2 Chloride 99 Carbon Dioxide 42 H* BUN 23 H Creatinine 1.05 Glucose 134 H Calcium 8.6 Liver Function 07/16/16 Range/Units 05:40 Total Bilirubin 0.6 (0.2-1.2) mg/dL AST 16 (5-34) Units/L ALT 16 (0-55) Units/L Alkaline Phosphatase 60 (38-126) Units/L Albumin 2.5 L (3.5-5.0) g/dL - ABG Interpretation ABG results: ABG ABG pH 7.46 pH Units (7.32-7.45) H 07/12/16 14:35 ABG pCO2 79 mmHg (35-45) H* 07/12/16 14:35 ABG pO2 90 mmHg (85-104) 07/12/16 14:35 ABG O2 Saturation 97 % (95-98) 07/12/16 14:35 PT/INR, D-dimer PT 12.7 Seconds (9.4-12.1) H 07/12/16 13:54 Consult Discharge Plan - Plan Instructions: Nitrofurantoin Combination (By mouth), Atrial Fibrillation (DC), Urinary Tract Infection in Women (DC), Chronic Kidney Disease (DC), Chronic Kidney Disease (GEN), Diabetes Mellitus Type 2 in Adults (DC), Chronic Obstructive Pulmonary Disease (DC), Chronic Hypertension (DC), Chronic Kidney Disease, Motel Front Desk Attendant (GEN) Referrals: Luz Hicks MD [Primary Care Provider] - 07/26/16 10:45 am Prescriptions: Nitrofurantoin (BID) [Macrobid] 100 mg PO BID #14 capsule <Ko Pastor - Last Filed: 07/17/16 21:44> Date of Encounter: 07/17/16 - Assessment and plan (1) Back pain Current Visit: Yes Status: Acute Qualifiers: Back pain location: low back pain Chronicity: chronic Back pain laterality: right Sciatica presence: without sciatica Qualified Code(s): M54.5 - Low back pain; G89.29 - Other chronic pain (2) Atrial fibrillation Current Visit: Yes Status: Acute Qualifiers: Atrial fibrillation type: persistent Qualified Code(s): I48.1 - Persistent atrial fibrillation (3) Urinary incontinence Current Visit: Yes Status: Chronic Assessment and plan: MRI ordered to r/o cord compression. Qualifiers: Urinary Incontinence type: continuous leakage Qualified Code(s): N39.45 - Continuous leakage (4) UTI (urinary tract infection) Current Visit: Yes Status: Acute Qualifiers: Urinary tract infection type: acute cystitis Hematuria presence: with hematuria Qualified Code(s): N30.01 - Acute cystitis with hematuria (5) CKD (chronic kidney disease) stage 3, GFR 30-59 ml/min Current Visit: Yes Status: Chronic (6) HTN (hypertension) Current Visit: Yes Status: Chronic Qualifiers: Hypertension type: essential hypertension Qualified Code(s): I10 - Essential (primary) hypertension (7) Diabetes mellitus Current Visit: Yes Status: Chronic Qualifiers: Diabetes mellitus type: type 2 Diabetes mellitus complication status: with hyperglycemia Diabetes mellitus manager long term care insulin use: without manager long term care use Qualified Code(s): E11.65 - Type 2 diabetes mellitus with hyperglycemia - Constitutional Vitals: Temp Pulse Resp BP Pulse Ox 98.2 F 83 18 144/60 95 07/17/16 20:24 07/17/16 20:24 07/17/16 20:44 07/17/16 20:24 07/17/16 20:44 Internal Medicine: Result - Labs CBC & Chem 7: 07/16/16 05:40 07/17/16 08:35 Labs: BMP 07/17/16 08:35 Sodium 146 H Potassium 4.8 H Chloride 102 Carbon Dioxide 37 H BUN 24 H Creatinine 1.06 Glucose 118 H Calcium 8.7 - ABG Interpretation ABG results: ABG ABG pH 7.46 pH Units (7.32-7.45) H 07/12/16 14:35 ABG pCO2 79 mmHg (35-45) H* 07/12/16 14:35 ABG pO2 90 mmHg (85-104) 07/12/16 14:35 ABG O2 Saturation 97 % (95-98) 07/12/16 14:35 PT/INR, D-dimer PT 12.5 Seconds (9.4-12.1) H 07/17/16 08:35 - Attending Attestation I examined this patient and my medical decision-making was reviewed with the Resident Physician on 07/16/16. I agree with the documented findings, disposition and treatment plan as described except to the extent set forth below. Ms. Caban is currently admitted for UTI and exac COPD. She remains moderate to high risk due to potential for worsening respiratory status. Ms. Gambino is complaining of back and R leg pain. She is also worried about her issues with urinary incontinence. She also has some issues with fecal incontinence. Breathing about baseline. No fever or chills. Exam Alert. Comfortable Heart irreg - not tachy Lungs with scattered rhonchi Abd soft and nontender. I/P 1. Urinary and fecal incontinence with back pain - MRIs ordered. 2. A fib 3. UTi Further diagnoses and plan as above.
[2016-07-17] MEDS: Multivit/Ca/Min/Fe/FA 1 TAB TABLET PO SCH (08:44)
[2016-07-17] MEDS: LUTEIN 10 MG PO SCH (08:44)
[2016-07-17] MEDS: Cholecalciferol (D-3) 1,000 UNIT TABLET PO SCH (08:44)
[2016-07-17 08:59] LABS: INR 1.2; Prothrombin Time 12.5 Seconds (9.4-12.1)
[2016-07-17 09:00] LABS: BUN/Creatinine Ratio 23 (6-26); Blood Urea Nitrogen 24 mg/dL (7-20); Calcium 8.7 mg/dL (8.6-10.8); Carbon Dioxide 37 mEq/L (19-29); Chloride 102 mEq/L (98-109); Glucose 118 mg/dL (70-99); Osmolality,Calculated 307 (280-300); Sodium 146 mEq/L (136-145); eGFR For African Americans > 60 (> 60); eGFR For Non-African Americans 51 (> 60)
[2016-07-17 09:01] LABS: Activated Partial Thrombo Time 28.6 Seconds (26.0-36.0); Potassium 4.8 mEq/L (3.5-4.5)
--- NOTE | 2016-07-17 09:37 | Internal Med Progress Note ---
<Roxane Haynes - Last Filed: 07/17/16 09:34> Date of Encounter: 07/17/16 Time of Encounter: 09:35 - Assessment and plan (1) Lumbar canal stenosis Current Visit: Yes Status: Chronic Assessment and plan: lumbar MRI with moderate to severe canal stenosis neurosurgery consulted, appreciate recommendations (2) UTI (urinary tract infection) Current Visit: Yes Status: Acute Assessment and plan: Rocephin day 3 chronic urinary incontinence Qualifiers: Urinary tract infection type: site unspecified Hematuria presence: with hematuria Qualified Code(s): N39.0 - Urinary tract infection, site not specified (3) Atrial fibrillation with RVR Current Visit: Yes Status: Resolved Assessment and plan: Atrial fibrillation with rapid ventricular rate: [id number] score is 4 Anticoagulation : Xarelto on cardizem drip and rate is getting controlled. elevated troponin likely demand ischimia. plan will cycle tropnin will titrate cardizem drip. continue xarelto by tomorrow will switch her to oral meds. 07/14/2016. Troponin drawn, downward trend. Intravenous Cardizem terminated. Patient is on oral Cardizem. Heart rate is between 60 and 70. Anticoagulation:Xarelto Noted that that is a drop of hemoglobin by 2. possible hemodilution. We will get stool occult blood. 07/15/2016 Patient's heart rate is between 65 and 70. She is still in atrial fibrillation. Anticoagulation:Xarelto. Stool occult still pending. Her hemoglobin and hematocrit is stable over the last 3 days. This is more likely dilutional drop. Patient received azithromycin upon arrival. This is likely to treat underlying respiratory infection. (4) CKD (chronic kidney disease) stage 3, GFR 30-59 ml/min Current Visit: Yes Status: Chronic Assessment and plan: at baseline (5) Diabetes mellitus Current Visit: Yes Status: Chronic Assessment and plan: ACHS SCSI Qualifiers: Diabetes mellitus type: type 2 Diabetes mellitus complication status: with unspecified complications Diabetes mellitus long term care social worker insulin use: without long term care social worker use Qualified Code(s): E11.8 - Type 2 diabetes mellitus with unspecified complications (6) HTN (hypertension) Current Visit: Yes Status: Chronic Assessment and plan: on home medications Qualifiers: Hypertension type: essential hypertension Qualified Code(s): I10 - Essential (primary) hypertension - Subjective Interval history: Patient seen and examined. No complaints at this time. Denies chest pain, dysuria, shortness of breath. - Constitutional Vitals: Temp Pulse Resp BP Pulse Ox 98.2 F 60 16 144/64 99 07/17/16 07:06 07/17/16 07:06 07/17/16 07:06 07/17/16 07:06 07/17/16 07:06 General appearance: Present: A&O X 3, morbidly obese, answers questions appropriately - Head Head exam: Present: atraumatic, normocephalic Additional comments: psoriasis of scalp - Eye Eye exam: Present: EOMI, PERRL, sclera anicteric - Neck Neck exam general surgery: Present: supple - Respiratory Respiratory exam: Present: CTAB - Cardiovascular Cardiovascular exam: Present: RRR, +S1, +S2 - GI/Abdominal GI/Abdominal exam: Present: normal bowel sounds, soft. Absent: tenderness - Extremities Exam Additional comments: chronic venous stasis lichenification changes, also bandages to bilateral lower extremities - Neurological Exam Neurological exam: Present: alert, oriented X3, no focal deficits - Skin Skin exam: Present: dry Additional comments: psoriasis throughout Internal Medicine: Result - Labs CBC & Chem 7: 07/16/16 05:40 07/17/16 08:35 Labs: BMP 07/17/16 08:35 Sodium 146 H Potassium 4.8 H Chloride 102 Carbon Dioxide 37 H BUN 24 H Creatinine 1.06 Glucose 118 H Calcium 8.7 - ABG Interpretation ABG results: ABG ABG pH 7.46 pH Units (7.32-7.45) H 07/12/16 14:35 ABG pCO2 79 mmHg (35-45) H* 07/12/16 14:35 ABG pO2 90 mmHg (85-104) 07/12/16 14:35 ABG O2 Saturation 97 % (95-98) 07/12/16 14:35 PT/INR, D-dimer PT 12.5 Seconds (9.4-12.1) H 07/17/16 08:35 - Impressions Impressions Lumbar Spine MRI 07/16/16 10:27 IMPRESSION: 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 Trace grade 1 anterolisthesis at L4-L5. Moderate levoconvex scoliosis. Moderate-sized central disc protrusion at L5-S1 resulting in compression of both the S1 nerve roots and severe central canal stenosis. Moderate to severe central canal stenosis at L3-L4 and L4-L5 of multifactorial etiology. Mild central canal stenosis at L1-L2 and L2-L3. D/ / 07/16/2016 15:06:49 Soren Mclaughlin MD / minnie Interpreting Provider: Soren Mclaughlin MD Pelvis MRI 07/16/16 10:27 IMPRESSION: 1. Mild degenerative changes of the visualized lower lumbar spine. 2. Normal appearance of the right hip. 3. Rectocele. Status post hysterectomy. D/ / Papito Alba MD / Papito Alba MD Interpreting Provider: Papito Alba MD Consult Discharge Plan - Plan Instructions: Nitrofurantoin Combination (By mouth), Atrial Fibrillation (DC), Urinary Tract Infection in Women (DC), Chronic Kidney Disease (DC), Chronic Kidney Disease (GEN), Diabetes Mellitus Type 2 in Adults (DC), Chronic Obstructive Pulmonary Disease (DC), Chronic Hypertension (DC), Chronic Kidney Disease, Field Traffic Investigator (GEN) Referrals: Luz Hicks MD [Primary Care Provider] - 07/26/16 10:45 am Prescriptions: Nitrofurantoin (BID) [Macrobid] 100 mg PO BID #14 capsule <Ko Pastor - Last Filed: 07/17/16 22:06> Date of Encounter: 07/17/16 - Assessment and plan (1) Lumbar canal stenosis Current Visit: Yes Status: Chronic (2) Spondylolisthesis at L4-L5 level Current Visit: Yes Status: Chronic (3) Back pain Current Visit: Yes Status: Acute Qualifiers: Back pain location: low back pain Chronicity: chronic Back pain laterality: right Sciatica presence: without sciatica Qualified Code(s): M54.5 - Low back pain; G89.29 - Other chronic pain (4) Atrial fibrillation Current Visit: Yes Status: Acute Qualifiers: Atrial fibrillation type: persistent Qualified Code(s): I48.1 - Persistent atrial fibrillation (5) Urinary incontinence Current Visit: Yes Status: Chronic Qualifiers: Urinary Incontinence type: continuous leakage Qualified Code(s): N39.45 - Continuous leakage (6) UTI (urinary tract infection) Current Visit: Yes Status: Acute Qualifiers: Urinary tract infection type: acute cystitis Hematuria presence: with hematuria Qualified Code(s): N30.01 - Acute cystitis with hematuria (7) CKD (chronic kidney disease) stage 3, GFR 30-59 ml/min Current Visit: Yes Status: Chronic (8) HTN (hypertension) Current Visit: Yes Status: Chronic Qualifiers: Hypertension type: essential hypertension Qualified Code(s): I10 - Essential (primary) hypertension (9) Diabetes mellitus Current Visit: Yes Status: Chronic Qualifiers: Diabetes mellitus type: type 2 Diabetes mellitus complication status: with hyperglycemia Diabetes mellitus [facility] insulin use: without long term care social worker use Qualified Code(s): E11.65 - Type 2 diabetes mellitus with hyperglycemia - Constitutional Vitals: Temp Pulse Resp BP Pulse Ox 98.2 F 83 18 144/60 95 07/17/16 20:24 07/17/16 20:24 07/17/16 20:44 07/17/16 20:24 07/17/16 20:44 Internal Medicine: Result - Labs CBC & Chem 7: 07/16/16 05:40 07/17/16 08:35 Labs: BMP 07/17/16 08:35 Sodium 146 H Potassium 4.8 H Chloride 102 Carbon Dioxide 37 H BUN 24 H Creatinine 1.06 Glucose 118 H Calcium 8.7 - ABG Interpretation ABG results: ABG ABG pH 7.46 pH Units (7.32-7.45) H 07/12/16 14:35 ABG pCO2 79 mmHg (35-45) H* 07/12/16 14:35 ABG pO2 90 mmHg (85-104) 07/12/16 14:35 ABG O2 Saturation 97 % (95-98) 07/12/16 14:35 PT/INR, D-dimer PT 12.5 Seconds (9.4-12.1) H 07/17/16 08:35 - Attending Attestation I examined this patient and my medical decision-making was reviewed with the Resident Physician on 07/17/16. I agree with the documented findings, disposition and treatment plan as described except to the extent set forth below. Ms. Gambino is currently admitted for atrial fibrillation, UTI and COPD exacerbation. She remains moderate to high risk due to potential for worsening neurologic and cardiac status. Ms. Gambino hat abnormal MRI. To be seen by neurosurgery today. Pain is about the same at this time. Has not gotten up with physical therapy. Breathing doing OK. Exam Alert. Comfortable Heart irreg Lungs with some rhonchi I/P 1. Lumbar stenosis 2. A fib Further diagnoses and plan as above.
--- NOTE | 2016-07-17 13:09 | Spinal Consult Note ---
Date of Encounter: 07/17/16 Time of Encounter: 13:05 Assessment and Plan (1) Spondylolisthesis at L4-L5 level Current Visit: Yes Status: Chronic (2) Lumbar canal stenosis Current Visit: Yes Status: Chronic On exam she is lying comfortably in bed. She appears to have some shortness of breath with speech and is on oxygen. She is morbidly obese. She is afebrile with stable vital signs. She is neurovascularly intact with regard to her bilateral upper and lower extremities. She has severe psoriatic changes in the skin of the lower extremities. Her hips move symmetrically. She has no clonus. MRI of the lumbar spine reveals moderate to severe stenosis from L3-S1. There are multilevel degenerative changes apparent. She has a grade 1 degenerative spondylolisthesis at L4-5. Plan: I do not think the etiology of her chronic urinary and fecal incontinence is secondary to her spinal stenosis. She may need further workup with a urologist or uro-oracle application consultant on an outpatient basis. She is not complaining today of much back pain and has mild proximal thigh pain on the right which she says she can tolerate. If symptoms worsen I will consider referral to interventional pain management for consideration of lumbar epidural steroid injections. She is likely to need rehabilitation secondary to her poor ambulatory and functional status. She does not require urgent surgical intervention. And History of Present Illness Chief complaint: Urinary and fecal incontinence long-standing. HPI: Ms. Gambino is a 75 year old female Complains of chronic weakness in the lower extremities such that she cannot ambulate distances. She is a household ambulator essentially going from chair to commode only. She also has chronic dyspnea and is oxygen dependent. She has a long-standing history of urinary incontinence but has had increasing bouts of fecal incontinence over the past year. Per her and her 's history she had some workup by Dr. Ohara of urology and was placed on medications for incontinence and was told there might be a renal etiology to her complaints. He asked to see secondary to her poor ambulation ability, and bowel and urinary complaints which are chronic. She denies fevers or chills. She has severe psoriasis as well. Please see past medical history for additional details. Past Med Surg Social Fam HX - Past Medical History Medical history: atrial fibrillation, COPD, hypertension, kidney stones Psychiatric history: no psych history - Past Surgical History Surgical History: cholecystectomy - Social History Smoking Status: Never smoker Smokeless Tobacco Status: No Alcohol use: none Drug use: none Medications and Allergies Cholecalciferol (Vitamin D3) [Vitamin D3] 2,000 unit PO DAILY 02/14/15 [History] Docusate [Colace] 300 mg PO HS 02/14/15 [History] Ferrous Sulfate 325 mg PO DAILY 02/14/15 [History] Losartan/Hydrochlorothiazide [Hyzaar 50-12.5 Tablet] 1 each PO BID 02/14/15 [ History] Lutein 10 mg PO DAILY 02/14/15 [History] Multivitamin/Iron/Folic Acid [Centrum Complete Multivit Tab] 1 each PO DAILY 01/19 [History] Nebivolol [Bystolic] 10 mg PO DAILY 02/14/15 [History] Oxycodone HCl/Acetaminophen [Percocet 5-325 mg Tablet] 1 each PO Q4H PRN #15 tablet 02/14/15 [Rx] Rivaroxaban [Xarelto] 20 mg PO HS 02/14/15 [History] Sennosides [Senna] 8.6 mg PO DAILY 02/14/15 [History] Simvastatin [Zocor] 20 mg PO HS 02/14/15 [History] Albuterol Sulfate [Albuterol Inhaler] 0 puff IH Q4HR 07/12/16 [History] Oxybutynin [Ditropan] 5 mg PO BID 07/12/16 [History] Oxygen 2 l .ROUTE AD 07/12/16 [History] Nitrofurantoin (BID) [Macrobid] 100 mg PO BID #14 capsule 07/16/16 [Rx] Allergies ciprofloxacin [From Cipro] Allergy (Verified 02/14/15 11:03) UNKNOWN tramadol [From Ultram] Adverse Reaction (Verified 02/14/15 11:03) UNKNOWN trospium Adverse Reaction (Verified 02/14/15 11:03) Diarrhea Results - Labs Result Diagrams: 07/16/16 05:40 07/17/16 08:35 Labs: Abnormal lab results Hgb 11.3 g/dL (11.5-15.4) L 07/16/16 05:40 MCHC 29.5 g/dL (31.6-35.5) L 07/16/16 05:40 Plt Count 132 K/mcL (140-400) L 07/16/16 05:40 PT 12.5 Seconds (9.4-12.1) H 07/17/16 08:35 ABG pH 7.46 pH Units (7.32-7.45) H 07/12/16 14:35 ABG pCO2 79 mmHg (35-45) H* 07/12/16 14:35 ABG HCO3 56.2 mEQ/L (21-27) H 07/12/16 14:35 ABG Total CO2 58.6 mEq/L (20-26) H 07/12/16 14:35 ABG Base Excess 27.0 mEq/L (-2.0 to 3.0) H 07/12/16 14:35 Sodium 146 mEq/L (136-145) H 07/17/16 08:35 Potassium 4.8 mEq/L (3.5-4.5) H 07/17/16 08:35 Carbon Dioxide 37 mEq/L (19-29) H 07/17/16 08:35 BUN 24 mg/dL (7-20) H 07/17/16 08:35 Est GFR (Non-Af Amer) 51 (> 60) L 07/17/16 08:35 Glucose 118 mg/dL (70-99) H 07/17/16 08:35 Calculated Osmolality 307 (280-300) H 07/17/16 08:35 Troponin I 0.07 ng/mL (0-0.03) H* 07/14/16 00:45 Albumin 2.5 g/dL (3.5-5.0) L 07/16/16 05:40 Globulin 4.0 g/dL (2.4-3.5) H 07/16/16 05:40 Albumin/Globulin Ratio 0.6 (1.1-2.2) L 07/16/16 05:40 Urine Clarity Cloudy (Clear) A 07/14/16 10:15 Urine Protein 30 mg/dL (Neg-Trace) H 07/14/16 10:15 Urine Glucose (UA) >=1000 mg/dL (Normal) H 07/14/16 10:15 Urine Blood Large (Negative) H 07/14/16 10:15 Ur Leukocyte Esterase Moderate (Negative) H 07/14/16 10:15 Urine Microscopic RBC TNTC per hpf (0-3) H 07/14/16 10:15 Urine Microscopic WBC 50-100 per hpf (0-3) H 07/14/16 10:15 Ur Squamous Epith Cells Many per lpf (None-Few) H 07/14/16 10:15 All other labs normal. 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
[2016-07-17] MEDS ORDERED: *HR* Rivaroxaban 10 MG TABLET PO SCH (22:18)
[2016-07-18 06:16] LABS: Basophils % 0.4 %; Eosinophils # 0.2 K/mcL (0.0-0.6); Eosinophils % 2.1 %; Hematocrit 35.4 % (35.3-44.9); Hemoglobin 10.3 g/dL (11.5-15.4); Immature Granulocytes % 0.4 % (0-4); Lymphocytes # 1.7 K/mcL (0.6-4.6); Lymphocytes % 23.5 %; Mean Corpuscular HGB Conc 29.1 g/dL (31.6-35.5); Mean Corpuscular Volume 103.2 fL (83.0-100.0); Mean Platelet Volume 11.3 fL (9.4-12.4); Monocytes # 0.7 K/mcL (0.0-1.3); Monocytes % 9.1 %; Neutrophils # 4.7 K/mcL (1.6-8.9); Platelet Count 147 K/mcL (140-400); Red Blood Count 3.43 M/mcL (3.82-4.97); Red Cell Distribution Width 13.7 % (11.5-14.5); Segmented Neutrophils % 64.5 %
[2016-07-18 06:26] LABS: Calcium 8.9 mg/dL (8.6-10.8)
[2016-07-18 07:05] LABS: Potassium 4.9 mEq/L (3.5-4.5)
[2016-07-18 07:49] VITALS: BP 125/65
--- NOTE | 2016-07-18 09:14 | Discharge Summary ---
<Roxane Haynes - Last Filed: 07/18/16 13:59> Date of Encounter: 07/18/16 Time of Encounter: 09:10 - Discharge Diagnosis (1) Atrial fibrillation with RVR Priority: Primary Status: Resolved (2) COPD exacerbation Priority: Primary Status: Resolved (3) Lumbar canal stenosis Priority: Secondary Status: Chronic (4) UTI (urinary tract infection) Priority: Secondary Status: Acute Qualifiers: Urinary tract infection type: acute cystitis Hematuria presence: with hematuria Qualified Code(s): N30.01 - Acute cystitis with hematuria (5) CKD (chronic kidney disease) stage 3, GFR 30-59 ml/min Priority: Secondary Status: Chronic (6) Diabetes mellitus Priority: Secondary Status: Chronic Qualifiers: Diabetes mellitus type: type 2 Diabetes mellitus complication status: with hyperglycemia Diabetes mellitus watermaster insulin use: without jail use Qualified Code(s): E11.65 - Type 2 diabetes mellitus with hyperglycemia (7) HTN (hypertension) Priority: Secondary Status: Chronic Qualifiers: Hypertension type: essential hypertension Qualified Code(s): I10 - Essential (primary) hypertension - Discharge Medications Prescriptions: Docusate [Colace] 100 mg PO BID PRN #60 capsule PRN Reason: Constipation Docusate [Colace] 100 mg PO BID #60 capsule Nebivolol HCl [Bystolic] 10 mg PO DAILY #30 tablet Nitrofurantoin Monohyd/M-Cryst [Macrobid 100 mg Capsule] 100 mg PO BID #8 capsule Home Medications: Cholecalciferol (Vitamin D3) [Vitamin D3] 2,000 unit PO DAILY 02/14/15 [History] Ferrous Sulfate 325 mg PO DAILY 02/14/15 [History] Lutein 10 mg PO DAILY 02/14/15 [History] Multivitamin/Iron/Folic Acid [Centrum Complete Multivit Tab] 1 each PO DAILY 01/19 [History] Oxycodone HCl/Acetaminophen [Percocet 5-325 mg Tablet] 1 each PO Q4H PRN #15 tablet 02/14/15 [Rx] Rivaroxaban [Xarelto] 20 mg PO HS 02/14/15 [History] Simvastatin [Zocor] 20 mg PO HS 02/14/15 [History] Albuterol Sulfate [Albuterol Inhaler] 0 puff IH Q4HR 07/12/16 [History] Oxybutynin [Ditropan] 5 mg PO BID 07/12/16 [History] Oxygen 2 l .ROUTE AD 07/12/16 [History] Docusate [Colace] 100 mg PO BID #60 capsule 07/18/16 [Rx] Docusate [Colace] 100 mg PO BID PRN #60 capsule 07/18/16 [Rx] Nebivolol HCl [Bystolic] 10 mg PO DAILY #30 tablet 07/18/16 [Rx] Nitrofurantoin Monohyd/M-Cryst [Macrobid 100 mg Capsule] 100 mg PO BID #8 capsule 07/18/16 [Rx] Allergies/Adverse Reactions: Allergies ciprofloxacin [From Cipro] Allergy (Verified 02/14/15 11:03) UNKNOWN tramadol [From Ultram] Adverse Reaction (Verified 02/14/15 11:03) UNKNOWN trospium Adverse Reaction (Verified 02/14/15 11:03) Diarrhea Procedures/tests Complete & Pending: Procedures Performed prior 72 hours Category Date Time Status MR lumbar spine wo con [MR] Routine MRI 07/16/16 10:27 Completed MR pelvis wo con [MR] Routine MRI 07/16/16 10:27 Completed Date of admission: 07/12/16 18:33 Primary care physician: Luz Hicks Consults: 07/16/16 10:21 Consult to Physical Therapy [CONS] Routine Comment: Evaluate, develop and implement POC OT [Consult to Occupational Therapy] [CONS] Routine Comment: Evaluate, develop and implement POC 07/16/16 15:39 Consult to Orthopedic Surgery [CONS] Routine Consulting Provider: Terrell Heck Jr Reason for Consult: Lumbar disc herniation and canal stenosis Time Notified: 15:35 Call Completed: Yes Discharging clinician: Roxane Haynes Anticipated date of discharge: 07/18/16 - Patient Status Disposition: Home, Self-Care Condition: Fair Overall status at discharge: patient is progressing back to baseline - Discharge Instructions Instructions: Nitrofurantoin (By mouth), Laxative, Stool Softeners (By mouth), Nitrofurantoin Combination (By mouth), Nebivolol (By mouth), Atrial Fibrillation (DC), Urinary Tract Infection in Women (DC), Chronic Kidney Disease (DC), Chronic Kidney Disease (GEN), Diabetes Mellitus Type 2 in Adults ( DC), Chronic Obstructive Pulmonary Disease (DC), Chronic Hypertension (DC), Chronic Kidney Disease, 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 Denies chest pain, shortness of breath, or dysuria. Still stating she would like to go home and wait a period of time before starting home health PT. Hospital course: Ms. Gambino is a 75 year old female admitted for a fib RVR and COPD exacerbation. She was successfully rate controlled and her breathing was treated with duonebs and a Z-pack. She developed lower urinary tract symptoms and was found to have a UTI while inpatient - of note, she has chronic urinary incontinence. She also mentioned occasional fecal incontinence and back and hip pain. MRI was ordered along with neurosurgery consult. The surgeon does not believe that the MRI results are the cause of her urinary incontinence and her UTI was treated with Rocephin while inpatient. She is being discharged on macrobid. She refused PT/OT visits while inpatient and states that she would like home health PT but would like to have week or two at home to prepare before they come. - Time Spent with Patient Total time spent providing and/or coordinating discharge services: - Constitutional Vitals: Temp Pulse Resp BP Pulse Ox 97.9 F 57 18 125/65 94 07/18/16 07:47 07/18/16 07:47 07/18/16 07:47 07/18/16 07:47 07/18/16 07:47 General appearance: Present: A&O X 3, morbidly obese, answers questions appropriately - Head Head exam: Present: atraumatic, normocephalic Additional comments: psoriasis of scalp - Eye Eye exam: Present: EOMI, PERRL, sclera anicteric - Neck Neck exam general surgery: Present: supple - Respiratory Respiratory exam: Present: CTAB - Cardiovascular Cardiovascular exam: Present: irregular rhythm. Absent: tachycardia - GI/Abdominal GI/Abdominal exam: Present: normal bowel sounds, soft. Absent: tenderness - Extremities Exam Additional comments: chronic venous stasis lichenification changes, also bandages to bilateral lower extremities - Neurological Exam Neurological exam: Present: alert, oriented X3, no focal deficits - Skin Skin exam: Present: dry Additional comments: psoriasis throughout <Ko Pastor Shahab - Last Filed: 07/18/16 19:43> Date of Encounter: 07/18/16 - Discharge Diagnosis (1) Lumbar canal stenosis Priority: Primary Status: Chronic (2) Spondylolisthesis at L4-L5 level Priority: Secondary Status: Chronic (3) Back pain Priority: Secondary Status: Acute Qualifiers: Back pain location: low back pain Chronicity: chronic Back pain laterality: right Sciatica presence: without sciatica Qualified Code(s): M54.5 - Low back pain; G89.29 - Other chronic pain (4) Atrial fibrillation Priority: Primary Status: Acute Qualifiers: Atrial fibrillation type: persistent Qualified Code(s): I48.1 - Persistent atrial fibrillation (5) Urinary incontinence Priority: Secondary Status: Chronic Qualifiers: Urinary Incontinence type: continuous leakage Qualified Code(s): N39.45 - Continuous leakage (6) UTI (urinary tract infection) Priority: Secondary Status: Acute Qualifiers: Urinary tract infection type: acute cystitis Hematuria presence: with hematuria Qualified Code(s): N30.01 - Acute cystitis with hematuria (7) CKD (chronic kidney disease) stage 3, GFR 30-59 ml/min Priority: Secondary Status: Chronic (8) HTN (hypertension) Priority: Secondary Status: Chronic Qualifiers: Hypertension type: essential hypertension Qualified Code(s): I10 - Essential (primary) hypertension (9) Diabetes mellitus Priority: Secondary Status: Chronic Qualifiers: Diabetes mellitus type: type 2 Diabetes mellitus complication status: with hyperglycemia Diabetes mellitus watermaster insulin use: without watermaster use Qualified Code(s): E11.65 - Type 2 diabetes mellitus with hyperglycemia Procedures/tests Complete & Pending: Procedures Performed prior 72 hours Category Date Time Status MR lumbar spine wo con [MR] Routine MRI 07/16/16 10:27 Completed MR pelvis wo con [MR] Routine MRI 07/16/16 10:27 Completed Date of admission: 07/12/16 18:33 Primary care physician: Luz Hicks Consults: 07/16/16 10:21 Consult to Physical Therapy [CONS] Routine Comment: Evaluate, develop and implement POC OT [Consult to Occupational Therapy] [CONS] Routine Comment: Evaluate, develop and implement POC 07/16/16 15:39 Consult to Orthopedic Surgery [CONS] Routine Consulting Provider: Terrell Heck Jr Reason for Consult: Lumbar disc herniation and canal stenosis Time Notified: 15:35 Call Completed: Yes Hospital course: Ms. Gambino is a 75 year old female - Time Spent with Patient Total time spent providing and/or coordinating discharge services: - Constitutional Vitals: Temp Pulse Resp BP Pulse Ox 97.9 F 57 18 125/65 94 07/18/16 07:47 07/18/16 07:47 07/18/16 07:47 07/18/16 07:47 07/18/16 07:47 - Attending Attestation I examined this patient and my medical decision-making was reviewed with the Resident Physician on 07/18/16. I agree with the documented findings, disposition and treatment plan as described except to the extent set forth below. Ms. Gambino is doing OK today. She feels baseline. Cough is better. No chest pain. Her vitals are stable and she is afebrile. Exam Alert. Comfortable Heart irreg Lungs clear Plan D/C home today Follow up with PCP.
[2016-07-18] MEDS: Cholecalciferol (D-3) 1,000 UNIT TABLET PO SCH (09:46)
[2016-07-18] MEDS: Multivit/Ca/Min/Fe/FA 1 TAB TABLET PO SCH (09:46)
[2016-07-18] MEDS: LUTEIN 10 MG PO SCH (09:48)
--- NOTE | 2016-07-18 13:09 | Physician Discharge Referral ---
Home Health/Hosp Referral Info Transfer to: Home Health Attending Provider: Ko Pastor DO Provider in Charge Post Discharge: PCP - Diagnosis (1) Lumbar canal stenosis Status: Chronic (2) Spondylolisthesis at L4-L5 level Priority: Secondary Status: Chronic (3) Back pain Priority: Secondary Status: Acute (4) Atrial fibrillation Priority: Secondary Status: Acute (5) Urinary incontinence Priority: Secondary Status: Chronic (6) UTI (urinary tract infection) Priority: Primary Status: Acute (7) CKD (chronic kidney disease) stage 3, GFR 30-59 ml/min Priority: Secondary Status: Chronic (8) HTN (hypertension) Priority: Secondary Status: Chronic (9) Diabetes mellitus Priority: Secondary Status: Chronic - Respiratory Orders Oxygen / L per min Smoking Cessation: Smoking cessation has been advised. For more information, call the [employer] Tobacco Quit Line at 5-513-EQTY-NOW. - Diet/Nutrition Diet/Nutrition Orders: Cardiac - Activity Activity Orders: Up ad guillermo - Services Needed Following services are medically necessary services: Nursing, Home Health Aide, Physical Therapy - Transfer Medications Prescriptions: Docusate [Colace] 100 mg PO BID PRN #60 capsule PRN Reason: Constipation Docusate [Colace] 100 mg PO BID #60 capsule Nebivolol HCl [Bystolic] 10 mg PO DAILY #30 tablet Nitrofurantoin Monohyd/M-Cryst [Macrobid 100 mg Capsule] 100 mg PO BID #8 capsule Home Medications: Cholecalciferol (Vitamin D3) [Vitamin D3] 2,000 unit PO DAILY 02/14/15 [History] Ferrous Sulfate 325 mg PO DAILY 02/14/15 [History] Lutein 10 mg PO DAILY 02/14/15 [History] Multivitamin/Iron/Folic Acid [Centrum Complete Multivit Tab] 1 each PO DAILY 01/19 [History] Oxycodone HCl/Acetaminophen [Percocet 5-325 mg Tablet] 1 each PO Q4H PRN #15 tablet 02/14/15 [Rx] Rivaroxaban [Xarelto] 20 mg PO HS 02/14/15 [History] Simvastatin [Zocor] 20 mg PO HS 02/14/15 [History] Albuterol Sulfate [Albuterol Inhaler] 0 puff IH Q4HR 07/12/16 [History] Oxybutynin [Ditropan] 5 mg PO BID 07/12/16 [History] Oxygen 2 l .ROUTE AD 07/12/16 [History] Docusate [Colace] 100 mg PO BID #60 capsule 07/18/16 [Rx] Docusate [Colace] 100 mg PO BID PRN #60 capsule 07/18/16 [Rx] Nebivolol HCl [Bystolic] 10 mg PO DAILY #30 tablet 07/18/16 [Rx] Nitrofurantoin Monohyd/M-Cryst [Macrobid 100 mg Capsule] 100 mg PO BID #8 capsule 07/18/16 [Rx] Allergies/Adverse Reactions: Allergies ciprofloxacin [From Cipro] Allergy (Verified 02/14/15 11:03) UNKNOWN tramadol [From Ultram] Adverse Reaction (Verified 02/14/15 11:03) UNKNOWN trospium Adverse Reaction (Verified 02/14/15 11:03) Diarrhea Certification: Further, I certify that my clinical findings support that this patient is homebound (i.e. absences from home require considerable and taxing effort and are for medical reasons or jainism services or infrequently or short duration when for other reasons) because: Homebound Reason: Patient requires assistance of a person or device to safely leave home, Leaving home requires considerable and taxing effort due to condition, Severity of cardiac or pulmonary status limits activity tolerance Attestation: My signature below is to certify that this patient is under my care and that I, or nurse practitioner, or a physician's temporary administrative assistant working with me, has a face-to -face encounter with this patient.
== END 2016-07-18 16:25 | disposition home or self-care (01) | DRG 190 ==
LOC: EMEROO 13:27 → 2NENU 13:27 → SUATTDRO 18:33
PROVIDERS: ADMIT Nurse Practitioner Acute Care; ATTEND Internal Medicine